=== PATIENT | female | born 2000 | race Caucasian/White ===

== ENCOUNTER 2021-08-06 07:36 | Inpatient (IN) ==
[2021-08-06] MEDS ORDERED: *HR* Nalbuphine 10 MG/ML AMPUL IV PRN (08:15)
[2021-08-06] MEDS ORDERED: Metoclopramide 10 MG/2 ML VIAL IVP PRN (08:15)
[2021-08-06] MEDS ORDERED: Famotidine 20 MG/2 ML VIAL IVP PRN (08:15)
[2021-08-06] MEDS ORDERED: Azithromycin 500 MG in 0.9 % Sodium Chloride 250 ML IVPB PRN (08:15)
[2021-08-06] MEDS ORDERED: Penicillin G Potassium 5,000,000 UNIT in 0.9 % Sodium Chloride Mini Bag 100 ML IVPB ONE (08:15)
[2021-08-06] MEDS ORDERED: Naloxone 0.4 MG/ML INJ IVP PRN ×2 (08:15→09:05)
[2021-08-06] MEDS ORDERED: Ondansetron 4 MG/2 ML VIAL IVP PRN ×2 (08:15→09:05)
[2021-08-06] MEDS ORDERED: Ringers Solution, Lactated 1,000 ML IVC SCH (08:15)
[2021-08-06] MEDS ORDERED: Lidocaine 1% 20 ML MDV INFILT PRN (08:15)
[2021-08-06] MEDS ORDERED: Ringers Solution, Lactated 1,000 ML ONE (08:20)
[2021-08-06] MEDS ORDERED: Oxytocin 20 units/ LR 1000 mL 20 UNIT/1,000 ML BAG IVC ONE ×2 (08:32→14:37)
[2021-08-06 09:02] LABS: Basophils % 0.3 %; Eosinophils # 0.2 K/mcL (0.0-0.6); Hematocrit 36.8 % (35.3-44.9); Hemoglobin 12.1 g/dL (11.5-15.4); Immature Granulocytes % 0.7 % (0-4); Lymphocytes # 3.3 K/mcL (0.6-4.6); Lymphocytes % 22.7 %; Mean Corpuscular HGB Conc 32.9 g/dL (31.6-35.5); Mean Corpuscular Hemoglobin 29.5 pg (28.0-33.3); Mean Corpuscular Volume 89.8 fL (83.0-100.0); Mean Platelet Volume 13.2 fL (9.4-12.4); Monocytes # 0.8 K/mcL (0.0-1.3); Monocytes % 5.6 %; Neutrophils # 10.3 K/mcL (1.6-8.9); Platelet Count 147 K/mcL (140-400); Red Cell Distribution Width 13.8 % (11.5-14.5); Segmented Neutrophils % 69.7 %; White Blood Count 14.7 K/mcL (4.3-11.1)
[2021-08-06 09:05] LABS: Protein/Creatinine Ratio,Urine 0.24 mg/mg (0.00-0.20)
[2021-08-06] MEDS ORDERED: Ropivacaine/PF 0.2% 20 ML VIAL EP ONE (09:05)
[2021-08-06] MEDS ORDERED: EPHEDrine 50 MG/ML VIAL IVP PRN (09:05)
[2021-08-06] MEDS ORDERED: *HR* FentaNYL (PF) 100 MCG/2 ML VIAL EP ONE (09:05)
[2021-08-06 09:16] LABS: Alanine Aminotransferase 6 Units/L (7-52); Aspartate Amino Transferase 10 Units/L (13-39); BUN/Creatinine Ratio 15 (6-26); Blood Urea Nitrogen 8 mg/dL (6-20); Lactate Dehydrogenase 151 Units/L (140-271); eGFR For African Americans > 60 (> 60); eGFR For Non-African Americans > 60 (> 60)
[2021-08-06 09:22] LABS: Amphetamine Screen,Urine Negative ng/mL (Cutoff=1000); Barbiturate Screen,Urine Negative ng/mL (Cutoff=200); Benzodiazepines Screen,Urine Negative ng/mL (Cutoff=200); Cannabinoid Screen,Urine Positive ng/mL (Cutoff = 50); Cocaine Screen,Urine Negative ng/mL (Cutoff= 300); Opiate Screen,Urine Negative ng/mL (Cutoff=300); Phencyclidine Screen,Urine Negative ng/mL (Cutoff=25)
[2021-08-06] MEDS ORDERED: Epidural Premix (fent/bupiv) 110 ML EP ONE (09:24)
[2021-08-06] MEDS ORDERED: Ropivacaine/PF 0.2% 20 ML VIAL ONE (09:24)
[2021-08-06 10:52] LABS: Influenza A PCR Negative (Negative); Influenza B PCR Negative (Negative); Resp. Syncytial Virus PCR Negative (Negative); SARS-CoV-2 by PCR (In House) Negative (Negative)
[2021-08-06] MEDS ORDERED: Penicillin G Potassium 2,500,000 UNIT/105 ML MLS IVPB SCH (12:00)
[2021-08-06] MEDS ORDERED: Oxytocin 20 units/ LR 1000 mL 20 UNIT/1,000 ML BAG IVC SCH (16:46)
[2021-08-06] MEDS ORDERED: Lanolin 7 G OINT...G. TP PRN (16:46)
[2021-08-06] MEDS ORDERED: Benzocaine/Menthol 56 GM AEROSOL SPRAY TP PRN (16:46)
[2021-08-06] MEDS ORDERED: Ondansetron ODT 4 MG TAB.RAPDIS SL PRN (16:46)
[2021-08-06] MEDS ORDERED: Ibuprofen 600 MG TABLET PO SCH (18:19)
[2021-08-07] MEDS: Acetaminophen 325 MG TABLET PO SCH ×2 (03:53→11:53)
[2021-08-07 03:59] VITALS: O2SAT 98
[2021-08-07 07:23] VITALS: BP 107/71; PULSE 76; TEMP 98.4
[2021-08-07] MEDS ORDERED: Prenatal Vit/FA 1 EACH TABLET PO SCH (09:00)
== END 2021-08-07 15:01 | disposition home or self-care (01) | DRG 560 ==
LOC: 1NENULAB → OBSVTOIN 07:36 → 1NENUOBS 16:45
PROVIDERS: ADMIT Registered Nurse; ATTEND Registered Nurse